=== PATIENT | male | born 1985 | race Two or more races ===

== ENCOUNTER 2024-05-04 23:32 | Inpatient (IN) | payer MEDICAID, OTHER ==
[~2024-05-04] VITALS: Ht 170.2 cm; Wt 78.9 kg
[2024-05-05] MEDS: LORazepam 2 MG/ML VIAL IM ONE ×2 (00:21→04:15)
[2024-05-05] MEDS: HALOPERIDOL LACTATE 5 MG/ML VIAL IM ONE ×2 (00:22→04:18)
[2024-05-05] MEDS: DiphenhydrAMINE HCL 50 MG/ML VIAL IM ONE (00:22)
[2024-05-05] MEDS ORDERED: ZIPRASIDONE MESYLATE 20 MG/VIAL IM ONE (00:44)
[2024-05-05] MEDS: ZIPRASIDONE MESYLATE 20 MG/VIAL IM ONE (00:55)
[2024-05-05 01:41] LABS: BASOPHILS % (AUTO) 0.2 % (0.0-2.0); EOSINOPHILS % (AUTO) 0.5 % (1.0-6.0); HEMATOCRIT 45.4 % (41-53); HEMOGLOBIN 15.3 g/dL (13.5-17.5); LYMPHOCYTES # (AUTO) 1.5 K/uL (1.0-4.8); LYMPHOCYTES % (AUTO) 9.2 % (22.0-44.0); MEAN CORPUSCULAR HEMOGLOBIN 29.5 pg (26.0-34.0); MEAN CORPUSCULAR HGB CONC 33.7 G/dL (31.0-37.0); MEAN CORPUSCULAR VOLUME 88 fL (80-100); MONOCYTES # (AUTO) 0.8 K/uL (0.1-1.0); MONOCYTES % (AUTO) 4.8 % (2.0-9.0); NEUTROPHILS # (AUTO) 13.9 K/uL (1.8-7.7); PLATELET COUNT (AUTO) 260 K/uL (150-450); RED BLOOD CELL COUNT(AUTO) 5.19 MIL/uL (4.50-5.90); RED CELL DISTRIBUTION WIDTH 12.5 % (11.5-14.5); WHITE BLOOD COUNT (AUTO) 16.3 K/uL (4.5-11.0)
[2024-05-05 01:42] LABS: ANION GAP 17 mmol/L (8-16); CALCIUM, TOTAL 9.5 mg/dL (8.8-10.5); CARBON DIOXIDE 23 mmol/L (22-29); CHLORIDE 103 mmol/L (98-107); CREATININE 1.03 mg/dL (0.60-1.30); GLOMERULAR FILTR. RATE CALC > 60 mL/min (>60); GLUCOSE,RANDOM 96 mg/dL (70-110); POTASSIUM 3.1 mmol/L (3.5-5.1); SODIUM SERUM 143 mmol/L (136-145); UREA NITROGEN, BLOOD 14 mg/dL (7-18)
[2024-05-05 01:43] LABS: ALCOHOL, BLOOD (SERUM) 81 mg/dL (0-10)
[2024-05-05 01:44] LABS: NEUTROPHILS % (AUTO) 85.3 % (40.0-70.0)
[2024-05-05 02:18] LABS: ALCOHOL, URINE DRUG SCREEN POSITIVE (NEGATIVE); AMPHET/METH SCREEN,URINE NEGATIVE (NEGATIVE); BARBITURATE SCREEN, URINE NEGATIVE (NEGATIVE); BENZODIAZEPINES SCREEN,URINE NEGATIVE (NEGATIVE); CANNABINOID SCREEN,URINE POSITIVE (NEGATIVE); COCAINE SCREEN,URINE NEGATIVE (NEGATIVE); METHADONE SCREEN, URINE NEGATIVE (NEGATIVE); OPIATE SCREEN,URINE NEGATIVE (NEGATIVE); PHENCYCLIDINE SCREEN,URINE NEGATIVE (NEGATIVE)
[2024-05-05] MEDS: POTASSIUM CHLORIDE 20 MEQ ER TABLET PO ONE (04:14)
[2024-05-05 04:38] LABS: COVID AG,FIA SOURCE NASAL SWAB
[2024-05-05 04:57] LABS: SARS-COV2 (COVID) ANTIGEN,FIA Negative (Negative)
[2024-05-05] MEDS: HALOPERIDOL 5 MG TABLET PO PRN (22:24)
[2024-05-05] MEDS: LORazepam 2 MG TABLET PO PRN (22:24)
[2024-05-06 03:43] VITALS: BP 119/65; PULSE 76; RESP 18; TEMP 97.3; O2SAT 99
[2024-05-06] MEDS ORDERED: LOPERAMIDE HCL 2 MG CAPSULE PO PRN (07:45)
[2024-05-06] MEDS ORDERED: GuaiFENesin/D-METHORPHAN [SUGAR-FREE] 200-20MG/10 ML SYRUP UDCUP PO PRN (07:45)
[2024-05-06] MEDS ORDERED: NICOTINE 14 MG/24 HOUR PATCH TD PRN (07:45)
[2024-05-06] MEDS ORDERED: ACETAMINOPHEN 325 MG TABLET PO PRN (07:45)
[2024-05-06] MEDS ORDERED: MAGNESIUM HYDROXIDE SUSPENSION 30 ML UDCUP PO PRN (07:45)
[2024-05-06] MEDS ORDERED: PETROLATUM,WHITE 28 GM JELLY TP PRN (07:45)
[2024-05-06] MEDS ORDERED: CloNIDine HCL 0.1 MG TABLET PO PRN (07:45)
[2024-05-06] MEDS ORDERED: DOCUSATE SODIUM 100 MG CAPSULE PO PRN (07:45)
[2024-05-06] MEDS ORDERED: ONDANSETRON HCL 4 MG TABLET PO PRN (07:45)
[2024-05-06] MEDS ORDERED: IBUPROFEN 400 MG TABLET PO PRN (07:45)
[2024-05-06] MEDS ORDERED: MAG HYDROX/ALUMINUM HYD/SIMETH ES 30 ML SUSPENSION UDCUP PO PRN (07:45)
[2024-05-06] MEDS ORDERED: ALBUTEROL SULFATE HFA 90 MCG/PUFF 8 GM INHALER IH PRN (07:45)
[2024-05-06 08:12] VITALS: BP 97/64; PULSE 60; RESP 17; TEMP 97.4; O2SAT 98
[2024-05-06 08:30] LABS: HEMOGLOBIN A1C 5.1 % (3.8-5.6)
[2024-05-06 08:51] LABS: CHOL/HDL RATIO 4.4 (4.2-7.3); FREE T4 (FREE THYROXINE) 0.92 ng/dL (0.76-1.46); POTASSIUM 3.4 mmol/L (3.5-5.1); THYROID STIMULATING HORMONE 1.04 uIU/mL (0.36-3.74)
[2024-05-06] MEDS: BACITRACIN 28 GM OINTMENT TP SCH (09:43)
[2024-05-06 20:22] VITALS: BP 117/66; PULSE 77; RESP 16; TEMP 98; O2SAT 95
[2024-05-06] MEDS: OLANZapine 5 MG TABLET PO SCH (20:39)
[2024-05-06] MEDS: ZOLPIDEM TARTRATE 10 MG TABLET PO PRN (20:39)
[2024-05-07 08:31] VITALS: BP 118/65; PULSE 69; RESP 17; TEMP 98; O2SAT 99
[2024-05-07 08:38] LABS: HEMOGLOBIN A1C 5.1 % (3.8-5.6)
[2024-05-07 08:53] LABS: CHOL/HDL RATIO 4.3 (4.2-7.3); POTASSIUM 3.6 mmol/L (3.5-5.1); THYROID STIMULATING HORMONE 1.93 uIU/mL (0.36-3.74)
[2024-05-07] MEDS ORDERED: OLAN5TAB52 PO (14:05)
== END 2024-05-07 16:52 | disposition home or self-care (01) | DRG 751 ==
LOC: EDBD → EMS 23:32 → B3A 05-06 01:23
PROVIDERS: ADMIT Psychiatry & Neurology Child & Adolescent Psychiatry; ATTEND Psychiatry & Neurology Child & Adolescent Psychiatry
DX: F33.3 Major depressive disorder, recurrent, severe with psychotic symptoms (principal); R45.851 Suicidal ideations; E87.6 Hypokalemia; Z20.822 Contact with and (suspected) exposure to COVID-19; F10.129 Alcohol abuse with intoxication, unspecified; Y90.4 Blood alcohol level of 80-99 mg/100 ml; F41.9 Anxiety disorder, unspecified; F12.10 Cannabis abuse, uncomplicated; G47.00 Insomnia, unspecified; T42.4X2A Poisoning by benzodiazepines, intentional self-harm, initial encounter; Y92.89 Other specified places as the place of occurrence of the external cause
CPT/HCPCS: 80048; 80061; 80307; 83036; 84132; 84443; 85025; 86592; 99285; G0480; J1200; J1630; J2060; J3486

== ENCOUNTER 2024-05-08 16:32 | Emergency (ER) | payer MEDICAID, OTHER ==
[~2024-05-08] VITALS: Ht 165.1 cm; Wt 75.0 kg
[~2024-05-08 16:32] MED LIST: OLAN5TAB52 PO
[2024-05-08 16:51] VITALS: BP 145/65; PULSE 88; RESP 14; TEMP 98
[2024-05-08 17:05] LABS: APPEARANCE,URINE CLEAR (CLEAR); BILIRUBIN,URINE NEGATIVE (NEGATIVE); COLOR,URINE LIGHT YELLOW (YELLOW); GLUCOSE, URINE (UA) NEGATIVE (NEGATIVE); KETONES,URINE NEGATIVE (NEGATIVE); LEUKOCYTE ESTERASE ,URINE NEGATIVE (NEGATIVE); NITRATE,URINE NEGATIVE (NEGATIVE); OCCULT BLOOD,URINE NEGATIVE (NEGATIVE); PH,URINE 6.5 (5.0-8.0); PH,URINE DRUG SCREEN 6.5 (5.0-8.0); PROTEIN,URINE NEGATIVE (NEGATIVE); SPECIFIC GRAVITIY, URINE 1.011 (1.003-1.030); UROBILINOGEN,URINE <=1.0 mg/dL (<=1.0)
[2024-05-08 17:12] LABS: ALCOHOL, URINE DRUG SCREEN NEGATIVE (NEGATIVE); AMPHET/METH SCREEN,URINE NEGATIVE (NEGATIVE); BARBITURATE SCREEN, URINE NEGATIVE (NEGATIVE); BENZODIAZEPINES SCREEN,URINE NEGATIVE (NEGATIVE); CANNABINOID SCREEN,URINE POSITIVE (NEGATIVE); COCAINE SCREEN,URINE NEGATIVE (NEGATIVE); METHADONE SCREEN, URINE NEGATIVE (NEGATIVE); OPIATE SCREEN,URINE NEGATIVE (NEGATIVE); PHENCYCLIDINE SCREEN,URINE NEGATIVE (NEGATIVE)
[2024-05-08 18:01] LABS: BACTERIA,URINE None Seen /HPF (None Seen); RBC,URINE None Seen /HPF (0-2); WBC,URINE 0-2 /HPF (0-5)
== END 2024-05-08 19:25 | disposition left against medical advice (07) ==
LOC: EMS 16:35
DX: F41.9 Anxiety disorder, unspecified (principal); Z53.21 Procedure and treatment not carried out due to patient leaving prior to being seen by health care provider
CPT/HCPCS: 80307; 81001